=== PATIENT | female | born 1985 | race Caucasian/White ===

== ENCOUNTER 2017-12-17 15:06 | Emergency (ER) | payer BC ==
[2017-12-17] MEDS ORDERED: Keppra 500 MG/5 ML*** 500 MG in D5w 100ML Mini Bag 100 ML 100 ML IV ONE (15:24)
[2017-12-17] MEDS ORDERED: Sodium Chloride 0.9% 1000 ML 1,000 ML IV STA (15:24)
--- NOTE | 2017-12-17 15:24 | ERPHSYRPT ---
- History of Present Illness Time Seen by Provider: 12/17/17 15:20 Source: patient Exam Limitations: no limitations Physician History: The patient is a 32-year-old female brought in by ambulance from work where she was witnessed to have a generalized seizure prior to arrival. The patient is still somewhat unresponsive at this time. She does answer questions by nodding her head yes or no. She does not verbalize at this time. She has a history of seizures but has not taken seizure medicine for "some time". She was given Zofran 4 mg and Versed 3 mg by EMS before arrival. Timing/Duration: today Severity: moderate Character of Deficits: general (difuse) Deficits: decrease ability to stand Baseline/Normal Cognition: alert oriented x 3 Current Cognition: poor alertness Baseline Gait: walks w/o assistance Associated Symptoms: other (seizure) Allergies/Adverse Reactions: No Known Drug Allergies Allergy (Verified 12/17/17 15:21) Home Medications: No Reportable Medications [No Reported Medications] 06/25/15 [History] - Review of Systems Constitutional: No Fever, No Chills Eyes: No Symptoms Ears, Nose, & Throat: No Symptoms Respiratory: No Cough, No Dyspnea Cardiac: No Chest Pain, No Edema, No Syncope Abdominal/Gastrointestinal: No Abdominal Pain, No Nausea, No Vomiting, No Diarrhea Genitourinary Symptoms: No Dysuria Musculoskeletal: No Back Pain, No Neck Pain Skin: No Rash Neurological: Seizure Psychological: No Symptoms Endocrine: No Symptoms Hematologic/Lymphatic: No Symptoms Immunological/Allergic: No Symptoms All Other Systems: Reviewed and Negative - Past Medical History Pertinent Past Medical History: Yes Female Reproductive Disorders: Cervical Cancer, Other Other Medical History: HISTORY OF OVARIAN CYSTS WITH SURGICAL INTERVENTION AND MULTIPLE CERVICAL ABNORMALITIES - Past Surgical History Past Surgical History: Yes Female Surgical History: Other Other Surgical History: OVARIAN CYSTS - Social History Smoking Status: Former smoker Exposure to second hand smoke: No Drug Use: none Patient Lives Alone: No - Nursing Vital Signs Nursing Vital Signs: Initial Vital Signs Temperature 98.7 F 12/17/17 15:07 Pulse Rate 88 12/17/17 15:07 Respiratory Rate 18 12/17/17 15:07 Blood Pressure 124/83 12/17/17 15:07 O2 Sat by Pulse Oximetry 100 12/17/17 15:07 Pain Scale Pain Intensity 0 - [place] Coma Scale Best Eye Response ([place]): (4) open spontaneously Best Verbal Response ([place]): (5) oriented Best Motor Response (Giulia): (6) obeys commands Giulia Total: 15 - Physical Exam General Appearance: lethargy Eye Exam: bilateral eye: normal inspection Ears, Nose, Throat Exam: normal ENT inspection, moist mucous membranes Neck Exam: normal inspection, non-tender, supple Respiratory: normal breath sounds, lungs clear, airway intact, No respiratory distress Cardiovascular: regular rate/rhythm, No edema Gastrointestinal: soft, No tenderness, No distention Pelvic Exam: not done Rectal Exam: not done Back Exam: normal inspection Extremity Exam: normal inspection, No pedal edema 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 Motor/Sensory: no motor deficit Skin Exam: normal color, warm, dry, No rash SpO2 Interpretation: normal - CT Exams Head CT Interpretation: Negative (per Dr Morales), Tele-radiologist Report Ordered Tests: Active Orders 24 hr Category Date Time Status Accucheck STAT Care 12/17/17 15:24 Active IV Insertion STAT Care 12/17/17 15:24 Active Pulse Oximetry (ED) STAT Care 12/17/17 15:24 Active HEAD WITHOUT CONTRAST [CT] Stat Exams 12/17/17 15:25 Completed CBC W DIFF Stat Lab 12/17/17 15:41 Completed CMP Stat Lab 12/17/17 15:41 Completed CULTURE,URINE Stat Lab 12/17/17 16:41 Received Lactic Acid Stat Lab 12/17/17 15:24 Completed UA W/ MICROSCOPIC Stat Lab 12/17/17 16:41 Completed Urine Triage Profile Stat Lab 12/17/17 15:25 Completed Medication Summary Discontinued Medications Generic Name Dose Route Start Last Admin Trade Name Freq PRN Reason Stop Dose Admin Levetiracetam 500 mg/ Dextrose 105 mls @ 400 mls/hr 12/17/17 15:24 12/17/17 15:38 IV 12/17/17 15:39 400 mls/hr STAT ONE Administration Sodium Chloride 1,000 mls @ 999 mls/hr 12/17/17 15:24 12/17/17 15:32 Sodium Chloride 0.9% 1000 Ml IV 12/17/17 16:24 999 mls/hr .Q1H1M STA Administration Sodium Chloride Confirm 12/17/17 15:30 Sodium Chloride 0.9% 1000 Ml Administered 12/17/17 15:31 Dose 1,000 mls @ ud .ROUTE .STK-MED ONE Lab/Rad Data: Laboratory Result Diagrams 12/17/17 15:41 12/17/17 15:41 Laboratory Results 12/17/17 12/17/17 12/17/17 Range/Units 16:41 15:41 15:41 WBC 6.9 (4.0-10.5) K/mm3 RBC 4.46 (4.1-5.4) M/mm3 Hgb 13.9 (12.0-16.0) gm/dl Hct 41.0 (35-47) % MCV 91.9 (78-100) fl MCH 31.2 (26-32) pg MCHC 33.9 (32-36) g/dl RDW 12.6 (11.5-14.0) % Plt Count 224 (150-450) K/mm3 MPV 10.6 H (6-9.5) fl Gran % 53.6 (36.0-66.0) % Eos # (Auto) 0.13 (0-0.5) Absolute Lymphs (auto) 2.53 (1.0-4.6) Absolute Monos (auto) 0.47 (0.0-1.3) Lymphocytes % 36.9 (24.0-44.0) % Monocytes % 6.9 (0.0-12.0) % Eosinophils % 1.9 (0.00-5.0) % Basophils % 0.7 (0.0-0.4) % Absolute Granulocytes 3.67 (1.4-6.9) Basophils # 0.05 (0-0.4) Sodium 144 (137-145) mmol/L Potassium 3.5 (3.5-5.1) mmol/L Chloride 107 (98-107) mmol/L Carbon Dioxide 23 (22-30) mmol/L Anion Gap 17.8 H (5-15) MEQ/L BUN 16 (7-17) mg/dL Creatinine 0.72 (0.52-1.04) mg/dL Estimated GFR > 60.0 ML/MIN Glucose 98 (74-106) mg/dL Lactic Acid (0.4-2.0) Calcium 9.7 (8.4-10.2) mg/dL Total Bilirubin 0.20 (0.2-1.3) mg/dL AST 28 (14-36) U/L ALT 29 (0-35) U/L Alkaline Phosphatase 104 (38-126) U/L Serum Total Protein 8.1 (6.3-8.2) g/dL Albumin 4.7 (3.5-5.0) g/dL Ur Collection Type VOID Urine Color YELLOW (YELLOW) Urine Appearance CLEAR (CLEAR) Urine pH 6.0 (5-6) Ur Specific [place] 1.005 (1.005-1.025) Urine Protein NEGATIVE (Negative) Urine Ketones NEGATIVE (NEGATIVE) Urine Blood NEGATIVE (0-5) Harsh/ul Urine Nitrite NEGATIVE (NEGATIVE) Urine Bilirubin NEGATIVE (NEGATIVE) Urine Urobilinogen NORMAL (0-1) mg/dL Ur Leukocyte Esterase 1+ (NEGATIVE) Urine Microscopic WBC 5-10 (0-5) /HPF Ur Epithelial Cells RARE (FEW) /HPF Urine Bacteria FEW (NEGATIVE) /HPF Urine Culture Reflexed YES (NO) Urine Glucose NEGATIVE (NEGATIVE) mg/dL Urine Opiates Level (NEGATIVE) Ur Methadone (NEGATIVE) Urine Barbiturates (NEGATIVE) Ur Phencyclidine (PCP) (NEGATIVE) Urine Amphetamine (NEGATIVE) U Benzodiazepine Level (NEGATIVE) Urine Cocaine (NEGATIVE) Urine Marijuana (THC) (NEGATIVE) Specimen Received 12/17/17 1640 12/17/17 12/17/17 Range/Units 15:25 15:24 WBC (4.0-10.5) K/mm3 RBC (4.1-5.4) M/mm3 Hgb (12.0-16.0) gm/dl Hct (35-47) % MCV (78-100) fl MCH (26-32) pg MCHC (32-36) g/dl RDW (11.5-14.0) % Plt Count (150-450) K/mm3 MPV (6-9.5) fl Gran % (36.0-66.0) % Eos # (Auto) (0-0.5) Absolute Lymphs (auto) (1.0-4.6) Absolute Monos (auto) (0.0-1.3) Lymphocytes % (24.0-44.0) % Monocytes % (0.0-12.0) % Eosinophils % (0.00-5.0) % Basophils % (0.0-0.4) % Absolute Granulocytes (1.4-6.9) Basophils # (0-0.4) Sodium (137-145) mmol/L Potassium (3.5-5.1) mmol/L Chloride (98-107) mmol/L Carbon Dioxide (22-30) mmol/L Anion Gap (5-15) MEQ/L BUN (7-17) mg/dL Creatinine (0.52-1.04) mg/dL Estimated GFR ML/MIN Glucose (74-106) mg/dL Lactic Acid 1.3 (0.4-2.0) Calcium (8.4-10.2) mg/dL Total Bilirubin (0.2-1.3) mg/dL AST (14-36) U/L ALT (0-35) U/L Alkaline Phosphatase (38-126) U/L Serum Total Protein (6.3-8.2) g/dL Albumin (3.5-5.0) g/dL Ur Collection Type Urine Color (YELLOW) Urine Appearance (CLEAR) Urine pH (5-6) Ur Specific [place] (1.005-1.025) Urine Protein (Negative) Urine Ketones (NEGATIVE) Urine Blood (0-5) Harsh/ul Urine Nitrite (NEGATIVE) Urine Bilirubin (NEGATIVE) Urine Urobilinogen (0-1) mg/dL Ur Leukocyte Esterase (NEGATIVE) Urine Microscopic WBC (0-5) /HPF Ur Epithelial Cells (FEW) /HPF Urine Bacteria (NEGATIVE) /HPF Urine Culture Reflexed (NO) Urine Glucose (NEGATIVE) mg/dL Urine Opiates Level NEGATIVE (NEGATIVE) Ur Methadone NEGATIVE (NEGATIVE) Urine Barbiturates NEGATIVE (NEGATIVE) Ur Phencyclidine (PCP) NEGATIVE (NEGATIVE) Urine Amphetamine NEGATIVE (NEGATIVE) U Benzodiazepine Level POSITIVE (NEGATIVE) Urine Cocaine NEGATIVE (NEGATIVE) Urine Marijuana (THC) NEGATIVE (NEGATIVE) Specimen Received - Progress Progress: improved, re-examined Counseled pt/family regarding: lab results, diagnosis, need for follow-up - Departure Time of Disposition: 18:47 Departure Disposition: Home Clinical Impression: Seizure Condition: Stable Critical Care Time: No Referrals: SUNNY SEGURA NP [Primary Care Provider] - Additional Instructions: You had a seizure today. The ambulance crew gave you versed 3 mg. This medicine will give you mild amnesia for a few hours. You were given fluids by IV in the ER. You're also given Keppra 500 mg by IV. You will need to follow- up with a local doctor this week.
[2017-12-17] MEDS ORDERED: Sodium Chloride 0.9% 1000 ML 1,000 ML ONE (15:30)
[2017-12-17 15:44] LABS: BASOPHIL % 0.7 % (0.0-0.4); Basophil (Absolute #) 0.05 (0-0.4); Eosinophil % 1.9 % (0.00-5.0); Eosinophil (Absolute #) 0.13 (0-0.5); Granulocyte Absolute (ANC) 3.67 (1.4-6.9); Granulocytes % 53.6 % (36.0-66.0); Hemoglobin 13.9 gm/dl (12.0-16.0); Lymphocyte (Absolute #) 2.53 (1.0-4.6); Lymphocytes % 36.9 % (24.0-44.0); Mean Cell Volume 91.9 fl (78-100); Mean Corpuscular Hemoglobin 31.2 pg (26-32); Mean Corpuscular Hgb Concent. 33.9 g/dl (32-36); Mean Platelet Volume 10.6 fl (6-9.5); Monocyte (Absolute #) 0.47 (0.0-1.3); Monocytes % 6.9 % (0.0-12.0); Platelet Count 224 K/mm3 (150-450); Red Blood Count 4.46 M/mm3 (4.1-5.4); Red Cell Distribution Width 12.6 % (11.5-14.0); White Blood Count 6.9 K/mm3 (4.0-10.5)
[2017-12-17 16:01] LABS: ALBUMIN 4.7 g/dL (3.5-5.0); ALKALINE PHOSPHATASE 104 U/L (38-126); ANION GAP 17.8 MEQ/L (5-15); BLOOD UREA NITROGEN 16 mg/dL (7-17); CHLORIDE 107 mmol/L (98-107); Calcium 9.7 mg/dL (8.4-10.2); Carbon Dioxide 23 mmol/L (22-30); Creatinine 1 0.72 mg/dL (0.52-1.04); Glucose 98 mg/dL (74-106); Potassium 3.5 mmol/L (3.5-5.1); SGOT/AST 28 U/L (14-36); SGPT/ALT 29 U/L (0-35); SODIUM 144 mmol/L (137-145); Total Protein 8.1 g/dL (6.3-8.2)
--- NOTE | 2017-12-17 16:37 | XRAY ---
Indication: Seizure. Multiple contiguous axial images obtained through the head without contrast. Comparison: December 05, 2005. Again normal appearing brain parenchyma, ventricles, and bony calvarium. Visualized paranasal sinuses and mastoid air cells clear. Impression: Normal CT head without contrast exam. CTDI 69.66
[2017-12-17 16:59] LABS: Appearance CLEAR (CLEAR); Bacteria FEW /HPF (NEGATIVE); Bilirubin NEGATIVE (NEGATIVE); Blood NEGATIVE Ery/ul (0-5); Epithelial Cells RARE /HPF (FEW); Glucose NEGATIVE (NEGATIVE); Ketones NEGATIVE (NEGATIVE); Leukocyte Esterase 1+ (NEGATIVE); Nitrite NEGATIVE (NEGATIVE); Protein,Urine Dip NEGATIVE (Negative); Specific Gravity 1.005 (1.005-1.025); Urobilinogen NORMAL mg/dL (0-1)
[2017-12-17 16:59] LABS: Amphetamine,Urine NEGATIVE (NEGATIVE); Barbiturate,Urine NEGATIVE (NEGATIVE); Benzodiazepine,Urine POSITIVE (NEGATIVE); Cocaine,Urine NEGATIVE (NEGATIVE); Methadone,Urine NEGATIVE (NEGATIVE); Opiate,Urine NEGATIVE (NEGATIVE); PCP,Urine NEGATIVE (NEGATIVE); THC,Urine NEGATIVE (NEGATIVE)
[2017-12-17 19:16] VITALS: BP 116/80; PULSE 87; O2SAT 98
== END 2017-12-17 19:16 | disposition home or self-care (01) ==
LOC: ED 15:06
DX: R56.9 Unspecified convulsions (principal)
CPT/HCPCS: 36415; 70450; 80053; 80307; 81000; 82962; 83605; 85025; 87086; 96360; 96365; 99284; J1953

== ENCOUNTER 2019-09-15 20:06 | Emergency (ER) | payer BC ==
[2019-09-15] MEDS ORDERED: Sodium Chloride 0.9% 500 ML 500 ML IV ONE ×2 (20:51→20:58)
--- NOTE | 2019-09-15 21:09 | ERPHSYRPT ---
- History of Present Illness Time Seen by Provider: 09/15/19 20:45 Source: patient Exam Limitations: no limitations Patient Subjective Stated Complaint: pt states that she seen CHILD NUTRITION ASSISTANT today, pt states that she had an elevated D-Dimer, pt states that she is having chest tightness but states that it is from not taking b/p medication, pt states that she has a loop recorder Triage Nursing Assessment: pt ambulated into the er, axo x4, hypertensive, lung sound clear in all lobes, c/o elevated d-dimer Physician History: 34 y/o white female presents to ED after being evaluated by her CHILD NUTRITION ASSISTANT Sari Wray. pt had labs drawn in the office today to obtain a screening test for possible pulm embolism. pt was asymptomatic according to CHILD NUTRITION ASSISTANT. pt was told her d dimer screening test was over 700. pt was offered a cta tomorrow. pt did not want to wait. pts mom recently discharged from hospital for management of a pulmonary embolism. pt mother, grandmother and sister have had blood clotting issues. pt states she does have some mild but present cp now. she also has a cardiac hx. Timing/Duration: today Severity: mild Associated Symptoms: chest pain (mild) Allergies/Adverse Reactions: montelukast [From Singulair] Allergy (Verified 09/15/19 20:43) Home Medications: Midodrine HCl 5 mg PO DAILY 09/15/19 [History] Hx Tetanus, Diphtheria Vaccination/Date Given: Yes Hx Influenza Vaccination/Date Given: No Hx Pneumococcal Vaccination/Date Given: No - Review of Systems Constitutional: No Symptoms Eyes: No Symptoms Ears, Nose, & Throat: No Symptoms Respiratory: No Symptoms Cardiac: No Symptoms Abdominal/Gastrointestinal: No Symptoms Genitourinary Symptoms: No Symptoms Musculoskeletal: No Symptoms Skin: No Symptoms Neurological: No Symptoms Psychological: No Symptoms Endocrine: No Symptoms Hematologic/Lymphatic: No Symptoms Immunological/Allergic: No Symptoms All Other Systems: Reviewed and Negative - Past Medical History Pertinent Past Medical History: Yes Neurological History: Seizures ENT History: No Pertinent History Cardiac History: Arrhythmia Respiratory History: No Pertinent History Endocrine Medical History: No Pertinent History Musculoskeletal History: No Pertinent History GI Medical History: No Pertinent History History: No Pertinent History Psycho-Social History: No Pertinent History Female Reproductive Disorders: Cervical Cancer, Other Other Medical History: HISTORY OF OVARIAN CYSTS WITH SURGICAL INTERVENTION AND MULTIPLE CERVICAL ABNORMALITIES, MITRAL VALVE PROLASPE, LOOP RECORDER, HYPOTENSION - Past Surgical History Past Surgical History: Yes Neuro Surgical History: No Pertinent History Cardiac: No Pertinent History Respiratory: No Pertinent History Gastrointestinal: No Pertinent History Genitourinary: No Pertinent History Musculoskeletal: No Pertinent History Female Surgical History: Other Other Surgical History: OVARIAN CYSTS - Social History Smoking Status: Former smoker Exposure to second hand smoke: No Drug Use: none Patient Lives Alone: No - Female History Hx Now: No - Nursing Vital Signs Nursing Vital Signs: Initial Vital Signs Temperature 98.2 F 09/15/19 20:29 Pulse Rate 80 09/15/19 20:29 Respiratory Rate 15 09/15/19 20:29 Blood Pressure 143/91 09/15/19 20:29 O2 Sat by Pulse Oximetry 99 09/15/19 20:29 Pain Scale Pain Intensity 0 - Physical Exam General Appearance: no apparent distress, alert, anxiety Eye Exam: PERRL/EOMI, eyes nml inspection Ears, Nose, Throat Exam: normal ENT inspection, moist mucous membranes Neck Exam: normal inspection, non-tender, supple, full range of motion Respiratory Exam: normal breath sounds, lungs clear, airway intact, No chest tenderness, No respiratory distress Cardiovascular Exam: regular rate/rhythm, normal heart sounds, normal peripheral pulses Gastrointestinal/Abdomen Exam: soft, normal bowel sounds, No tenderness Pelvic Exam: not done Rectal Exam: not done Back Exam: normal inspection, normal range of motion, No CVA tenderness, No vertebral tenderness Extremity Exam: normal inspection, normal range of motion, pelvis stable Neurologic Exam: alert, oriented x 3, cooperative, clock repairer II-XII nml as tested Skin Exam: normal color, warm, dry Lymphatic Exam: No adenopathy SpO2 Interpretation: normal SpO2: 99 O2 Delivery: Room Air Ordered Tests: Active Orders 24 hr Category Date Time Status IV Insertion STAT Care 09/15/19 20:51 Active CHEST WITH CONTRAST [CT] Stat Exams 09/15/19 20:50 Taken BMP Stat Lab 09/15/19 21:12 Completed HCG,QUALITATIVE URINE Stat Lab 09/15/19 21:10 Completed Medication Summary Discontinued Medications Generic Name Dose Route Start Last Admin Trade Name Freq PRN Reason Stop Dose Admin Sodium Chloride 500 mls @ 500 mls/hr 09/15/19 20:51 09/15/19 22:39 Sodium Chloride 0.9% 500 Ml IV 09/15/19 21:50 Infused .Q1H ONE Infusion Sodium Chloride Confirm 09/15/19 20:58 Sodium Chloride 0.9% 500 Ml Administered 09/15/19 20:59 Dose 500 mls @ ud IV .STK-MED ONE Lab/Rad Data: Laboratory Result Diagrams 09/15/19 21:12 Laboratory Results 09/15/19 09/15/19 Range/Units 21:12 21:10 Sodium 139 (137-145) mmol/L Potassium 3.6 (3.5-5.1) mmol/L Chloride 104 (98-107) mmol/L Carbon Dioxide 27 (22-30) mmol/L Anion Gap 11.8 (5-15) MEQ/L BUN 17 (7-17) mg/dL Creatinine 0.82 (0.52-1.04) mg/dL Estimated GFR > 60.0 ML/MIN Glucose 97 (74-106) mg/dL Calcium 9.7 (8.4-10.2) mg/dL Urine HCG, Qual NEGATIVE (Negative) - Progress Progress: improved Progress Note: 09/15/19 23:41 cta-no pulm emboli. small hiatal hernia Counseled pt/family regarding: lab results, diagnosis, need for follow-up, rad results - Departure Departure Disposition: Home Clinical Impression: Elevated d-dimer Condition: Stable Critical Care Time: No Referrals: OSCAR WRAY [Primary Care Provider] - Additional Instructions: take all your medications as prescribed. follow up with primary doctor for further management
[2019-09-15 21:30] LABS: ANION GAP 11.8 MEQ/L (5-15); BLOOD UREA NITROGEN 17 mg/dL (7-17); CHLORIDE 104 mmol/L (98-107); Calcium 9.7 mg/dL (8.4-10.2); Carbon Dioxide 27 mmol/L (22-30); Creatinine 1 0.82 mg/dL (0.52-1.04); Glucose 97 mg/dL (74-106); Potassium 3.6 mmol/L (3.5-5.1); SODIUM 139 mmol/L (137-145)
[2019-09-15 23:55] VITALS: BP 134/86; PULSE 105; O2SAT 100
--- NOTE | 2019-09-16 09:16 | XRAY ---
Indication: Chest tightness 2 days. Elevated d-dimer. Multiple contiguous axial images obtained through the chest using 80 cc Isovue 370 contrast and PE protocol. Comparison: None There is good opacification of the pulmonary arteries to include the lobar and segmental branches. No filling defect or pulmonary embolus. Heart is not enlarged. Aorta is normal in course and caliber. No pathologic mediastinal/hilar lymphadenopathy. Lungs demonstrate minimal bilateral dependent atelectasis. Right middle lobe demonstrates 4 mm noncalcified nodule probably granulomatous in this demographic. No infiltrate or effusion. Bony thorax intact. Subcutaneous electronic monitoring device in the anterior chest wall just left of midline. Limited upper abdomen demonstrates mild fatty liver. Impression: 1. Negative pulmonary embolus. No acute cardiopulmonary abnormalities. 2. 4 mm right middle lobe noncalcified nodule probably granulomatous. 3. Fatty liver. Comment: Preliminary interpretation was made by [facility]. No critical discrepancy.
== END 2019-09-15 23:55 | disposition home or self-care (01) ==
LOC: ED 20:06
DX: R79.89 Other specified abnormal findings of blood chemistry (principal); R07.89 Other chest pain
CPT/HCPCS: 36000; 36415; 71260; 80048; 84703; 96360; 99284

== ENCOUNTER 2021-04-06 19:00 | Emergency (ER) | payer BC ==
--- NOTE | 2021-04-06 19:36 | ERPHSYRPT ---
- History of Present Illness Time Seen by Provider: 04/06/21 19:20 Historian: patient Exam Limitations: no limitations Patient Subjective Stated Complaint: Pt states "I have an arrythmia, mitral valve prolaps and see Dr. Cuadra and when I called today I spoke with Dr. David stewart. About 3 pm this afternoon I started to see spots in my right eye, I felt like I was going to pass out then my chest got really heavy." Triage Nursing Assessment: Pt presented alert and oriented X 3, skin pwd. Pt ambulates with an upright steady gait, able to speak in clear full setences pt resting comfortably on the bed. Physician History: Patient is a 35-year-old female with a history of cardiac dysrhythmia and mitral valve prolapse presents to our ED for evaluation of a near syncopal episode. Patient states that approximately 3 PM she experienced near syncope. Shortly thereafter her chest became heavy. 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 Deglado was covering. Patient was advised to come to our ED for evaluation. No active chest pain at this time. No associated nausea vomiting or diaphoresis. Symptoms are mild to moderate in intensity. No loss of consciousness. No fever. No diaphoresis. Patient otherwise generally healthy. She voices no other complaints concerns at this time. Timing/Duration: today Activities at Onset: none Quality: other (Heavy chest pressure.) Location: substernal Chest Pain Radiation: no radiation Severity of Pain-Max: moderate Severity of Pain-Current: none Associated Symptoms: denies symptoms, No shortness of breath, No fever, No syncope, No headache, No dizziness Prior Chest Pain/Cardiac Workup: echocardiography Nitro Today/Relief: no nitro taken today Aspirin Treatment Today: no aspirin today Allergies/Adverse Reactions: montelukast [From Singulair] Allergy (Verified 09/15/19 20:43) Home Medications: Midodrine HCl 5 mg PO DAILY 09/15/19 [History] Propranolol HCl [Propranolol HCl ER] 60 mg PO DAILY 04/06/21 [History] Rosuvastatin Calcium [Crestor] 5 mg PO DAILY 04/06/21 [History] Hx Tetanus, Diphtheria Vaccination/Date Given: No Hx Influenza Vaccination/Date Given: No Hx Pneumococcal Vaccination/Date Given: No Immunizations Up to Date: Yes Travel Risk - International Travel Have you traveled outside of the country in past 3 weeks: No - Coronavirus Screening Are you exhibiting any of the following symptoms?: No Close contact with a COVID-19 positive Pt in past 14-21 Days: No - Vaccine Status Have you recieved a Covid-19 vaccination: Yes [employer]: Moderna - Vaccination Dates Date of 2cond Vaccination (if applicable): 09/2020 - Review of Systems Constitutional: No Symptoms, No Fever, No Chills Eyes: No Symptoms Ears, Nose, & Throat: No Symptoms Respiratory: No Symptoms, No Cough, No Dyspnea Cardiac: No Symptoms, No Chest Pain, No Edema, No Syncope Abdominal/Gastrointestinal: No Symptoms, No Abdominal Pain, No Nausea, No Vomiting, No Diarrhea Genitourinary Symptoms: No Symptoms, No Dysuria Musculoskeletal: No Symptoms, No Back Pain, No Neck Pain Skin: No Symptoms, No Rash Neurological: No Symptoms, No Dizziness, No Focal Weakness, No Sensory Changes Psychological: No Symptoms Endocrine: No Symptoms Hematologic/Lymphatic: No Symptoms Immunological/Allergic: No Symptoms All Other Systems: Reviewed and Negative - Past Medical History Pertinent Past Medical History: Yes Neurological History: Seizures ENT History: No Pertinent History Cardiac History: Arrhythmia Respiratory History: No Pertinent History Endocrine Medical History: No Pertinent History Musculoskeletal History: No Pertinent History GI Medical History: No Pertinent History History: No Pertinent History Psycho-Social History: No Pertinent History Female Reproductive Disorders: Cervical Cancer, Other Other Medical History: HISTORY OF OVARIAN CYSTS WITH SURGICAL INTERVENTION AND MULTIPLE CERVICAL ABNORMALITIES, MITRAL VALVE PROLASPE, LOOP RECORDER, HYPOTENSION - Past Surgical History Past Surgical History: Yes Neuro Surgical History: No Pertinent History Cardiac: No Pertinent History Respiratory: No Pertinent History Gastrointestinal: No Pertinent History Genitourinary: No Pertinent History Musculoskeletal: No Pertinent History Female Surgical History: Other Other Surgical History: OVARIAN CYSTS - Social History Smoking Status: Former smoker Exposure to second hand smoke: No Drug Use: none Patient Lives Alone: No - Female History Hx Last Menstrual Period: mirena Hx Now: No - Nursing Vital Signs Nursing Vital Signs: Initial Vital Signs Temperature 98.1 F 04/06/21 19:01 Pulse Rate 88 04/06/21 19:01 Respiratory Rate 18 04/06/21 19:01 Blood Pressure 144/93 04/06/21 19:01 O2 Sat by Pulse Oximetry 100 04/06/21 19:01 Pain Scale Pain Intensity 4 - Physical Exam General Appearance: no apparent distress, alert Eye Exam: PERRL/EOMI, eyes nml inspection Ears, Nose, Throat Exam: normal ENT inspection, moist mucous membranes Neck Exam: normal inspection, non-tender, supple, full range of motion Respiratory Exam: normal breath sounds, lungs clear, No respiratory distress Cardiovascular Exam: regular rate/rhythm, normal heart sounds Gastrointestinal/Abdomen Exam: soft, No tenderness, No mass Back Exam: normal inspection, No CVA tenderness, No vertebral tenderness Extremity Exam: normal inspection, normal range of motion Neurologic Exam: alert, oriented x 3, cooperative, normal mood/affect, sensation nml, No motor deficits Skin Exam: normal color, warm, dry SpO2 Interpretation: normal SpO2: 100 O2 Delivery: Room Air - Course Nursing assessment & vital signs reviewed: Yes EKG Interpreted by Me: RATE (80), Sinus Rhythm, NORMAL AXIS, NORMAL INTERVALS - Radiology Exams Chest X-ray Interpretation: Interpreted by me (Lung asif are clear. Normal cardiac silhouette. Intact bony thorax. Loop recorder observed at the left aspect of the cardiac silhouette) - CT Exams Chest CT Interpretation: Tele-radiologist Report (No evidence of pulmonary embolus. No evidence of acute pulmonary pathology.) Ordered Tests: Active Orders 24 hr Category Date Time Status Chief Operator STAT Care 04/06/21 19:14 Active EKG-ER Only STAT Care 04/06/21 19:13 Active IV Insertion STAT Care 04/06/21 19:13 Active Pulse Oximetry (ED) STAT Care 04/06/21 19:13 Active CHEST 1 VIEW (PORTABLE) Stat Exams 04/06/21 19:14 Taken CHEST WITH CONTRAST [CT] Stat Exams 04/06/21 22:04 Taken CBC W DIFF Stat Lab 04/06/21 19:15 Completed CMP Stat Lab 04/06/21 19:15 Completed D-DIMER QUANTITATIVE Stat Lab 04/06/21 21:19 Completed NT PRO BNP Stat Lab 04/06/21 19:15 Completed TROPONIN Q3H Lab 04/06/21 19:15 Completed TROPONIN Q3H Lab 04/06/21 22:15 Completed TROPONIN Q3H Lab 04/07/21 01:15 Ordered TROPONIN Q3H Lab 04/07/21 04:15 Ordered TROPONIN Q3H Lab 04/07/21 07:15 Ordered UA W/RFX UR CULTURE Stat Lab 04/06/21 20:12 Completed Lab/Rad Data: Laboratory Result Diagrams 04/06/21 19:15 04/06/21 19:15 Laboratory Results 04/06/21 04/06/21 04/06/21 Range/Units 22:15 21:19 20:12 WBC (4.0-10.5) K/mm3 RBC (4.1-5.4) M/mm3 Hgb (12.0-16.0) gm/dl Hct (35-47) % MCV (78-100) fl MCH (26-32) pg MCHC (32-36) g/dl RDW (11.5-14.0) % Plt Count (150-450) K/mm3 MPV (7.5-11.0) fl Gran % (36.0-66.0) % Eos # (Auto) (0-0.5) Absolute Lymphs (auto) (1.0-4.6) Absolute Monos (auto) (0.0-1.3) Lymphocytes % (24.0-44.0) % Monocytes % (0.0-12.0) % Eosinophils % (0.00-5.0) % Basophils % (0.0-0.4) % Absolute Granulocytes (1.4-6.9) Basophils # (0-0.4) D-Dimer 574 H* (215-500) ng/mL Sodium (137-145) mmol/L Potassium (3.5-5.1) mmol/L Chloride (98-107) mmol/L Carbon Dioxide (22-30) mmol/L Anion Gap (5-15) MEQ/L BUN (7-17) mg/dL Creatinine (0.52-1.04) mg/dL Estimated GFR ML/MIN Glucose (74-106) mg/dL Calcium (8.4-10.2) mg/dL Total Bilirubin (0.2-1.3) mg/dL AST (14-36) U/L ALT (0-35) U/L Alkaline Phosphatase (38-126) U/L Troponin I < 0.012 (0.000-0.034) ng/mL NT-Pro-B Natriuret Pep (0-450) pg/mL Serum Total Protein (6.3-8.2) g/dL Albumin (3.5-5.0) g/dL Urine Color STRAW (YELLOW) Urine Appearance CLEAR (CLEAR) Urine pH 5.0 (5-6) Ur Specific [place] 1.006 (1.005-1.025) Urine Protein NEGATIVE (Negative) Urine Ketones TRACE (NEGATIVE) Urine Blood NEGATIVE (0-5) Harsh/ul Urine Nitrite NEGATIVE (NEGATIVE) Urine Bilirubin NEGATIVE (NEGATIVE) Urine Urobilinogen NEGATIVE (0-1) mg/dL Ur Leukocyte Esterase TRACE (NEGATIVE) Urine WBC (Auto) NONE (0-5) /HPF Urine RBC (Auto) NONE (0-2) /HPF U Epithel Cells (Auto) RARE (FEW) /HPF Urine Bacteria (Auto) NONE (NEGATIVE) /HPF Urine Culture Reflexed NO (NO) Urine Glucose NEGATIVE (NEGATIVE) mg/dL 04/06/21 04/06/21 04/06/21 Range/Units 19:15 19:15 19:15 WBC 8.6 (4.0-10.5) K/mm3 RBC 4.06 L (4.1-5.4) M/mm3 Hgb 13.1 (12.0-16.0) gm/dl Hct 40.2 (35-47) % MCV 99.0 (78-100) fl MCH 32.3 H (26-32) pg MCHC 32.6 (32-36) g/dl RDW 12.3 (11.5-14.0) % Plt Count 222 (150-450) K/mm3 MPV 11.3 H (7.5-11.0) fl Gran % 59.9 (36.0-66.0) % Eos # (Auto) 0.21 (0-0.5) Absolute Lymphs (auto) 2.67 (1.0-4.6) Absolute Monos (auto) 0.53 (0.0-1.3) Lymphocytes % 31.0 (24.0-44.0) % Monocytes % 6.2 (0.0-12.0) % Eosinophils % 2.4 (0.00-5.0) % Basophils % 0.5 (0.0-0.4) % Absolute Granulocytes 5.15 (1.4-6.9) Basophils # 0.04 (0-0.4) D-Dimer (215-500) ng/mL Sodium 138 (137-145) mmol/L Potassium 3.7 (3.5-5.1) mmol/L Chloride 103 (98-107) mmol/L Carbon Dioxide 22 (22-30) mmol/L Anion Gap 16.9 H (5-15) MEQ/L BUN 13 (7-17) mg/dL Creatinine 0.73 (0.52-1.04) mg/dL Estimated GFR > 60.0 ML/MIN Glucose 84 (74-106) mg/dL Calcium 9.7 (8.4-10.2) mg/dL Total Bilirubin 0.40 (0.2-1.3) mg/dL AST 42 H (14-36) U/L ALT 40 H (0-35) U/L Alkaline Phosphatase 83 (38-126) U/L Troponin I < 0.012 (0.000-0.034) ng/mL NT-Pro-B Natriuret Pep 19.0 (0-450) pg/mL Serum Total Protein 7.8 (6.3-8.2) g/dL Albumin 4.8 (3.5-5.0) g/dL Urine Color (YELLOW) Urine Appearance (CLEAR) Urine pH (5-6) Ur Specific [place] (1.005-1.025) Urine Protein (Negative) Urine Ketones (NEGATIVE) Urine Blood (0-5) Harsh/ul Urine Nitrite (NEGATIVE) Urine Bilirubin (NEGATIVE) Urine Urobilinogen (0-1) mg/dL Ur Leukocyte Esterase (NEGATIVE) Urine WBC (Auto) (0-5) /HPF Urine RBC (Auto) (0-2) /HPF U Epithel Cells (Auto) (FEW) /HPF Urine Bacteria (Auto) (NEGATIVE) /HPF Urine Culture Reflexed (NO) Urine Glucose (NEGATIVE) mg/dL - Progress Progress: improved Air Movement: good Progress Note: Patient reassessed. She is pain-free. D-dimer positive. CTA chest negative. Chest x-ray negative. Troponin x2 -. EKG normal sinus rhythm. Mother at bedside. Patient states he is ready for discharge. Will discharge home at this time. Patient agrees to follow-up with her primary care doctor within 48 hours for reevaluation. 04/06/21 23:40 Blood Culture(s) Obtained: No Antibiotics given: No Counseled pt/family regarding: lab results, diagnosis, need for follow-up, rad results - Departure Departure Disposition: Home Clinical Impression: Chest pain, Near syncope Condition: Stable Critical Care Time: No Referrals: OSCAR CHAVEZ [Primary Care Provider] - Additional Instructions: Discharge/Care Plan ANABEL CHAVEZ was seen on 04/06/21 in the Emergency Room. The patient was counseled regarding Diagnosis,Lab results, Imaging studies, need for follow up and when to return to the Emergency Room. Prescriptions given: Discharge Note I have spoken with the patient and/or caregivers. I have explained the patient's condition, diagnosis and treatment plan based on the information available to me at this time. I have answered the patient's and/or caregiver's questions and addressed any concerns. The patient and/or caregivers have as good understanding of the patient's diagnosis, condition and treatment plan as can be expected at this point. The vital signs have been stable. The patient's condition is stable and appropriate for discharge from the emergency department. The patient will pursue further outpatient evaluation with the primary care phy sician or other designated or consulting physician as outlined in the discharge instructions. The patient and/or caregivers are agreeable to this plan of care and follow-up instructions have been explained in detail. The patient and/or caregivers have received these instruction. The patient/and or caregivers are aware that any significant change in condition or worsening of symptoms should prompt an immediate return to this or the closest emergency department or call 911.
[2021-04-06 19:49] LABS: Absolute Neutrophil Ct (ANC) 5.15 (1.4-6.9); BASOPHIL % 0.5 % (0.0-0.4); Basophil (Absolute #) 0.04 (0-0.4); Eosinophil % 2.4 % (0.00-5.0); Eosinophil (Absolute #) 0.21 (0-0.5); Hematocrit 40.2 % (35-47); Hemoglobin 13.1 gm/dl (12.0-16.0); Lymphocyte (Absolute #) 2.67 (1.0-4.6); Mean Corpuscular Hemoglobin 32.3 pg (26-32); Mean Corpuscular Hgb Concent. 32.6 g/dl (32-36); Mean Platelet Volume 11.3 fl (7.5-11.0); Monocyte (Absolute #) 0.53 (0.0-1.3); Monocytes % 6.2 % (0.0-12.0); Neutrophil % 59.9 % (36.0-66.0); Platelet Count 222 K/mm3 (150-450); Red Blood Count 4.06 M/mm3 (4.1-5.4); Red Cell Distribution Width 12.3 % (11.5-14.0); White Blood Count 8.6 K/mm3 (4.0-10.5)
[2021-04-06 20:20] LABS: ALBUMIN 4.8 g/dL (3.5-5.0); ALKALINE PHOSPHATASE 83 U/L (38-126); ANION GAP 16.9 MEQ/L (5-15); BLOOD UREA NITROGEN 13 mg/dL (7-17); CHLORIDE 103 mmol/L (98-107); Calcium 9.7 mg/dL (8.4-10.2); Carbon Dioxide 22 mmol/L (22-30); Creatinine 1 0.73 mg/dL (0.52-1.04); EST GLOMERULAR FILTRATION RATE > 60.0 ML/MIN; Glucose 84 mg/dL (74-106); Potassium 3.7 mmol/L (3.5-5.1); SGOT/AST 42 U/L (14-36); SGPT/ALT 40 U/L (0-35); SODIUM 138 mmol/L (137-145); Total Protein 7.8 g/dL (6.3-8.2)
[2021-04-06 20:46] LABS: Appearance CLEAR (CLEAR); Bilirubin NEGATIVE (NEGATIVE); Blood NEGATIVE Ery/ul (0-5); Epithelial Cells RARE /HPF (FEW); Glucose NEGATIVE (NEGATIVE); Ketones TRACE (NEGATIVE); Leukocyte Esterase TRACE (NEGATIVE); Nitrite NEGATIVE (NEGATIVE); Protein,Urine Dip NEGATIVE (Negative); Specific Gravity 1.006 (1.005-1.025); Urobilinogen NEGATIVE mg/dL (0-1)
[2021-04-06 23:28] VITALS: O2SAT 100
[2021-04-06 23:59] VITALS: BP 114/78; PULSE 81
--- NOTE | 2021-04-07 09:19 | XRAY ---
Indication: Chest pain. Elevated d-dimer. Multiple contiguous images obtained through the chest using 80 cc Isovue 370 contrast and PE protocol. Comparison: September 15, 2019. There is good opacification of the pulmonary arteries to include the lobar and segmental branches. No pulmonary embolus. Heart is not enlarged. Aorta is normal in course and caliber. No pathologic mediastinal/hilar lymphadenopathy. Lungs inflated again with minimal bilateral dependent atelectasis and 4 mm right middle lobe noncalcified nodule. No suspicious pulmonary mass, infiltrate, or effusion. Bony thorax intact. Stable left anterior chest wall subcutaneously electronic monitoring device. Limited upper abdomen again demonstrates fatty liver. Impression: 1. Continued negative for pulmonary embolus. No new or acute cardiopulmonary abnormalities. 2. Again incidental benign right middle lobe noncalcified micronodule and fatty liver. Comment: Preliminary interpretation made by C. No critical discrepancy.
--- NOTE | 2021-04-07 09:21 | XRAY ---
Indication: Chest pain. Comparison: None Portable chest demonstrates normal heart, lungs, and bony thorax with incidental electronic monitoring device overlying the heart.
== END 2021-04-06 23:50 | disposition home or self-care (01) ==
LOC: ED 19:00
DX: R07.9 Chest pain, unspecified (principal); R55 Syncope and collapse; I34.1 Nonrheumatic mitral (valve) prolapse; Z79.899 Other long term (current) drug therapy
CPT/HCPCS: 36000; 36415; 71045; 71260; 80053; 81001; 83880; 84484; 85025; 85379; 93005; 93041; 94760; 99284